=== PATIENT | male | born 1950 | race Caucasian/White ===

== ENCOUNTER → 2016-08-31 | Outpatient (CLI) | payer MEDICARE ==
[2013-10-23 05:00] VITALS: BP 112/66
[~2016-08-31] MED LIST: ACET325T14 PO; LEVO25TA2 PO; NEOM15OI TP
== END ==
LOC: EDBD → EDSEX → CFH 07-03 10:22
PROVIDERS: ATTEND Family Medicine
DX: Z02.9 Encounter for administrative examinations, unspecified (principal)

== ENCOUNTER → 2017-07-18 | Outpatient (CLI) | payer SELFPAY ==
[~2017-07-18] MED LIST changes: +OXYC-306 PO
== END ==
LOC: CFH 09:11
PROVIDERS: ATTEND Internal Medicine Critical Care Medicine
DX: Z02.9 Encounter for administrative examinations, unspecified (principal)
CPT/HCPCS: 33884; 97162

== ENCOUNTER → 2018-02-12 | Outpatient (CLI) | payer OTHER ==
[2018-02-17 08:45] LABS: CHOL/HDL RATIO 2.6; LDL/HDL RATIO 1.2 (0.5-3.0)
[2018-02-17 09:03] LABS: CHOL/HDL RATIO 3.5; LDL/HDL RATIO 2.3 (0.5-3.0)
== END | disposition home or self-care (01) ==
LOC: EDSEX 07-23 08:00 → CFH 09:34
DX: Z02.9 Encounter for administrative examinations, unspecified (principal)
CPT/HCPCS: 36415; 80061; 81403; 85460; 85461; 86022; 86078; 86079; 86850; 86860; 86870; 86880; 86885; 86886; 86890; 86900; 86901; 86902; 86904; 86905; 86906; 86920; 86922; 86923; 86970; 86972; 86977; 86978; 86985; 99195; P9010; P9011; P9012; P9016; P9017; P9035; P9040; P9058

== ENCOUNTER → 2018-02-26 | Outpatient (CLI) | payer OTHER | END | disposition home or self-care (01) | LOC: LAB 08:42 | DX: Z02.9 Encounter for administrative examinations, unspecified (principal) | CPT/HCPCS: 36415; 86850; 86900; 86923; 86985; J2790; P9011; P9012; P9016; P9017; P9035; P9037; P9040; P9050; P9052 ==

== ENCOUNTER → 2019-12-15 | Outpatient (CLI) | payer MEDICARE ==
[~2019-12-15] MED LIST changes: +CARV6.252 PO; +METH750T2 PO
== END | disposition home or self-care (01) ==
LOC: EDBD → EDSEX → LAB 13:24
PROVIDERS: ATTEND Family Medicine
DX: Z02.9 Encounter for administrative examinations, unspecified (principal)

== ENCOUNTER → 2020-02-23 | Outpatient (CLI) | payer OTHER, MEDICARE | END | disposition home or self-care (01) | LOC: EDSEX → CFH 13:40 | PROVIDERS: ATTEND Internal Medicine | DX: Z02.9 Encounter for administrative examinations, unspecified (principal) ==